=== PATIENT | female | born 1980 | race Caucasian/White ===

== ENCOUNTER 2020-10-11 18:40 | Outpatient (CLI) | payer MEDICAID ==
[2020-10-11 20:24] LABS: HGB - HEMOGLOBIN 15.1 g/dL (12.0-16.0); MEAN CORPUSCULAR HGB CONC 33.3 g/dL (32.0-36.0); MEAN CORPUSCULAR VOLUME 98.9 fL (81.0-99.0); MEAN PLATELET VOLUME 9.6 fL (7.9-10.8); RED BLOOD COUNT 4.58 10^6/uL (4.20-5.40); RED CELL DISTRIBUTION WIDTH 12.1 % (12.0-15.0); WHITE BLOOD COUNT 5.5 x10^3/uL (4.8-10.8)
[2020-10-11 20:31] LABS: ALBUMIN 4.3 g/dL (3.2-5.5); ALBUMIN/GLOBULIN RATIO 1.3 (1.0-2.2); BILIRUBIN,TOTAL 0.3 mg/dL (0.2-1.0); CALCIUM 9.2 mg/dL (8.5-10.3); CREATININE 0.9 mg/dL (0.4-1.0); TOTAL PROTEIN 7.7 g/dL (6.7-8.2)
== END 2020-10-11 18:41 | disposition home or self-care (01) ==
LOC: LAB.S 18:40
PROVIDERS: ATTEND Nurse Practitioner
DX: Z01.84 Encounter for antibody response examination (principal); J02.9 Acute pharyngitis, unspecified
CPT/HCPCS: 36415; 80053; 85027; 86308; 86769

== ENCOUNTER 2020-11-19 12:52 | Outpatient (CLI) | payer MEDICAID | END 2020-11-19 12:53 | disposition EMS.NT | LOC: EMS 12:52 | DX: M79.642 Pain in left hand (principal); V89.0XXA Person injured in unspecified motor-vehicle accident, nontraffic, initial encounter; Y92.414 Local residential or business street as the place of occurrence of the external cause ==

== ENCOUNTER 2020-11-19 18:30 | Emergency (ER) | payer OTHER, MEDICAID ==
[2020-11-19 18:44] VITALS: BP 150/100
[2020-11-19] MEDS ORDERED: KETOROLAC 60 MG/2 ML VIAL IM STA (19:05)
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
--- NOTE | 2020-11-19 20:04 | XRAY Report ---
PROCEDURE: Hand 3 View LT INDICATIONS: r/o fx TECHNIQUE: 3 views of the hand(s) acquired. COMPARISON: None FINDINGS: Bones: No fractures or dislocations. No suspicious bony lesions. Soft tissues: No suspicious soft tissue calcifications. IMPRESSION: No visualized acute fracture or dislocation. However, occult injury cannot be excluded. Recommend rajan rt interval imaging follow-up in 7-10 days as clinically indicated for additional evaluation. Reviewed by: Gwen Davalos MD on 11/19/2020 8:02 PM PDT Approved by: Gwen Davalos MD on 11/19/2020 8:02 PM PDT Station ID: [id number]
== END 2020-11-19 20:30 | disposition home or self-care (01) ==
LOC: ED 18:30
DX: S60.222A Contusion of left hand, initial encounter (principal); V89.0XXA Person injured in unspecified motor-vehicle accident, nontraffic, initial encounter; I10 Essential (primary) hypertension
CPT/HCPCS: 96372; 99283; 99284

== ENCOUNTER 2020-11-29 18:00 | Outpatient (CLI) | payer MEDICAID ==
[2020-11-29 20:13] LABS: BASOPHILS % (AUTO) 0.8 %; EOSINOPHILS # (AUTO) 0.2 10^3/uL (0.0-0.7); EOSINOPHILS % (AUTO) 3.5 %; HCT - HEMATOCRIT 41.5 % (37.0-47.0); HGB - HEMOGLOBIN 13.5 g/dL (12.0-16.0); LYMPHOCYTES # (AUTO) 1.6 10^3/uL (1.5-3.5); MEAN CORPUSCULAR HEMOGLOBIN 32.3 pg (27.0-31.0); MEAN CORPUSCULAR HGB CONC 32.5 g/dL (32.0-36.0); MEAN CORPUSCULAR VOLUME 99.3 fL (81.0-99.0); MEAN PLATELET VOLUME 9.8 fL (7.9-10.8); MONOCYTES # (AUTO) 0.4 10^3/uL (0.0-1.0); MONOCYTES % (AUTO) 7.8 %; NEUTROPHILS # (AUTO) 2.9 10^3/uL (1.5-6.6); NEUTROPHILS % (AUTO) 55.7 %; PLT - PLATELET COUNT 285 10^3/uL (130-450); RED BLOOD COUNT 4.18 10^6/uL (4.20-5.40); RED CELL DISTRIBUTION WIDTH 12.2 % (12.0-15.0); WHITE BLOOD COUNT 5.1 x10^3/uL (4.8-10.8)
[2020-11-29 20:28] LABS: ALBUMIN 4.1 g/dL (3.2-5.5); ALBUMIN/GLOBULIN RATIO 1.4 (1.0-2.2); BILIRUBIN,TOTAL 0.8 mg/dL (0.2-1.0); CALCIUM 9.1 mg/dL (8.5-10.3); POTASSIUM 3.8 mmol/L (3.5-5.0)
[2020-12-02 11:31] LABS: ANA SCREEN NEGATIVE (NEGATIVE)
== END 2020-11-29 18:01 | disposition home or self-care (01) ==
LOC: LAB.S 18:00
PROVIDERS: ATTEND Nurse Practitioner
DX: F33.9 Major depressive disorder, recurrent, unspecified (principal); R53.83 Other fatigue
CPT/HCPCS: 36415; 80053; 82607; 85025; 86038

== ENCOUNTER 2021-08-12 13:25 | Outpatient (CLI) | payer MEDICAID | END 2021-08-12 13:26 | disposition other institution (70) | LOC: EMS 13:25 | DX: S06.9X9A Unspecified intracranial injury with loss of consciousness of unspecified duration, initial encounter (principal); V89.2XXA Person injured in unspecified motor-vehicle accident, traffic, initial encounter; Y93.89 Activity, other specified; Y92.411 Interstate highway as the place of occurrence of the external cause | CPT/HCPCS: A0425; A0429; A0999 ==

== ENCOUNTER 2023-05-08 18:36 | Emergency (ER) | payer OTHER, MEDICAID ==
--- NOTE | 2023-05-08 18:38 | ED Physician Documentation ---
PD HPI FEMALE - Stated complaint Stated Complaint: FIT - History obtained from History obtained from: Patient, Police - Additional information Additional information: Brought in by correction. She was just booked this afternoon. Admits to met hamphetamine and fentanyl use this morning. On booking she had a condom filled with drugs in her vagina and the correction is requesting a KUB and a pelvic exam. Discussed with patient and she is willing to have these exams. Patient states she is sleepy because she did not sleep last night worried about the court date today. PD PAST MEDICAL HISTORY - Past Medical History Cardiovascular: Hypertension Respiratory: None Neuro: Migraines Endocrine/Autoimmune: None HEENT: None Derm: None - Past Surgical History Past Surgical History: Yes HEENT: Myringotomy (tubes) - Present Medications Home Medications: Ambulatory Orders Medication Instructions Recorded Confirmed Ibuprofen [Motrin] 600 mg PO Q6H PRN #30 tab 11/19/20 - Allergies Allergies/Adverse Reactions: Allergies Allergy/AdvReac Type Severity Reaction Status Date / Time Penicillins Allergy Anaphylaxis Verified 05/08/23 18:43 Sulfa (Sulfonamide Allergy Anaphylaxis Verified 05/08/23 18:43 Antibiotics) - Social History Does the pt smoke?: No Smoking Status: Former smoker PD ED PE NORMAL - Vitals Vital signs reviewed: Yes - General General: Alert and oriented X 3, No acute distress, Other (Mildly sleepy) - HEENT HEENT: Other (Midpoint pupils) - Abdomen Abdomen: Non tender - Female Female : Other (Pelvic exam done with Gay HESTER present. No foreign body identified on speculum exam. Patient declined STD testing) - Neuro Neuro: Alert and oriented X 3, legal administrative assistant 2-12 intact Eye Opening: Spontaneous Motor: Obeys Commands Verbal: Oriented GCS Score: 15 Results - Vitals Vitals: Vital Signs - 24 hr 05/08/23 05/08/23 18:39 19:10 Temperature 36.7 C 36.9 C Heart Rate 95 91 Respiratory 20 16 Rate Blood Pressure 123/91 H 117/64 O2 Saturation 97 95 Oxygen O2 Source Room air - Rads (name of study) KUB x-ray negative for foreign body Relevant Findings:: Final report received, EMP independent interpretation of test PD Medical Decision Making - ED course ED course: 43-year-old woman presents from correction with correction requesting pelvic exam and x-ray. Discussed with patient and she is amenable to above testing and done without evidence of retained foreign body. She was somewhat sleepy here nodding off at times but without hypoxemia. This is consistent with coming down off of methamphetamines combined with no sleep last night. Spoke with correction nurse practitioner Aida Ross who will keep her in observation. Departure - Departure Disposition: 01 Home, Self Care Clinical Impression: Methamphetamine abuse, Mild fentanyl abuse Condition: Good Instructions: ED Drug Abuse General Forms: PCP List Discharge Date/Time: 05/08/23 20:09
[2023-05-08 19:42] VITALS: BP 117/64; O2SAT 95
--- NOTE | 2023-05-08 19:58 | XRAY Report ---
PROCEDURE: Abdomen 1 View X-Ray INDICATIONS: packing TECHNIQUE: One view of the abdomen acquired. COMPARISON: None. FINDINGS: Surgical changes and devices: Right hip arthroplasty. Partially visualized sternal wires Bowel: Bowel gas pattern is normal. Soft tissues: No suspicious abdominal calcifications. Visualized solid organ contours appear normal in size. Radiopaque chain like densities are noted overlying the abdomen. Bones: No suspicious bony lesions. IMPRESSION: No bowel obstruction. Radiopaque chain like densities overlying the abdomen suspected be external to the patient recommend clinical correlation. Reviewed by: Gwen Davalos MD on 05/08/2023 7:57 PM PDT Approved by: Gwen Davalos MD on 05/08/2023 7:57 PM PDT Station ID: [id number]
== END 2023-05-08 20:09 | disposition home or self-care (01) ==
LOC: EDUNIT# → ED 18:36
DX: F15.10 Other stimulant abuse, uncomplicated (principal)
CPT/HCPCS: 99283; 99284